=== PATIENT | female | born 1975 ===

== ENCOUNTER 2022-12-04 07:17 | Day surgery (SDC) | payer BC ==
[~2022-12-04] VITALS: Ht 149.9 cm; Wt 40.8 kg
[~2022-12-04 07:17] MED LIST: PRILOSEC OTC20 MG PO
[2022-12-04 09:43] VITALS: BP 113/65
== END 2022-12-04 10:03 | disposition home or self-care (01) | DRG 392 ==
LOC: ENDO 07:17 → ORM 11:15
PROVIDERS: ATTEND Internal Medicine Gastroenterology
PROC: 0DB98ZX Excision of Duodenum, Via Natural or Artificial Opening Endoscopic, Diagnostic (ICD-10-PCS; principal; 2022-12-04)
PROC: 0DB78ZX Excision of Stomach, Pylorus, Via Natural or Artificial Opening Endoscopic, Diagnostic (ICD-10-PCS; 2022-12-04)
DX: K29.50 Unspecified chronic gastritis without bleeding (principal); K80.20 Calculus of gallbladder without cholecystitis without obstruction; K59.09 Other constipation